=== PATIENT | male | born 1980 | race American Indian/Alaskan Native ===

== ENCOUNTER 2022-01-31 16:08 | Emergency (ER) | payer SELFPAY ==
[2022-01-31] MEDS ORDERED: KETOROLAC 10 MG TAB PO ONE (17:05)
[2022-01-31] MEDS ORDERED: CYCLOBENZAPRINE 10 MG TAB PO ONE (17:05)
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
[2022-01-31 17:40] VITALS: BP 143/96
== END 2022-01-31 17:38 | disposition home or self-care (01) ==
LOC: ED 16:08
DX: M54.50 Low back pain, unspecified (principal); M54.2 Cervicalgia; R51.9 Headache, unspecified; V89.2XXA Person injured in unspecified motor-vehicle accident, traffic, initial encounter; Y93.89 Activity, other specified; Y92.89 Other specified places as the place of occurrence of the external cause; Y99.8 Other external cause status
CPT/HCPCS: 99282